=== PATIENT | female | born 1965 | race Caucasian/White ===

== ENCOUNTER 2017-12-28 12:51 | Outpatient (RCR) | payer OTHER ==
[2017-10-26] MEDS: diphenhydrAMINE 25 MG CAP PO PRN (13:12)
[2017-10-26 13:19] VITALS: BP 129/81
[2017-12-06 09:11] VITALS: BP 154/111
[2017-12-06 13:54] VITALS: BP 126/72
[2017-12-06] MEDS: LIDOCAINE/SOD BICARB 8.4% SYR ID PRN (14:21)
[2017-12-06] MEDS: diphenhydrAMINE 25 MG CAP PO PRN (14:21)
[2017-12-06] MEDS: NS(*) 0.9% 100 ML BAG 100 ML IVPB PRN (14:22)
[~2017-12-28 12:51] MED LIST: ACETAMINOPHEN 325 MG TAB PO PRN; ACIPHX20PT GT; ACIPHX20PT PO; ACTEMRA; ADV250/50 INH; ALTEPLASE RECOMB 2 MG VIAL IVP PRN; ASPI81TA15 PO; BEN100 JT; BIOT1CAP; CALC625T57 PO; CETI-176 PO; CRAN200C5 PO; CYCL10TA29 GT; DEXTROSE 5%(*) 100 ML BAG 100 ML IVPB PRN; FENO135C3 PO; GUALA600 PEG; HEPARIN FLSH (PORT) 500 UN/5ML IVP PRN; HYDR-2966 PO; HYDR-3378 PO; HYDR200T77 PO; IMMU GLOB(IGG) 10GR/100ML VIAL 40 GR in EMPTY EVACUATED CONT 0 ML IV ONE; LACT1CAP4 PO; LOSA100T67 PO; MECL-81 PO; MON10 GT; MONT10TA PO; NS(*) 0.9% 500 ML BAG 500 ML IV PRN; ONDA4TAB PO; PAROX40PT GT; POLY17PO GT; POTA99TA2 PO; PROAIRPT IH; RANI-375 PO; RANI300C8 PO; TOP100 GT; TOPI-28 PO; WATER STERILE 10 ML VIAL IVP PRN; [UNRECOGNIZED DRUG - REMARK]; blood pressure med PO
[2017-12-28 13:15] VITALS: BP 127/90
[2017-12-28] MEDS: NS(*) 0.9% 100 ML BAG 100 ML IVPB PRN (13:20)
[2017-12-28 13:33] LABS: PLATELET COUNT, AUTOMATED 415 K/uL (150-450)
[2017-12-28] MEDS: diphenhydrAMINE 25 MG CAP PO PRN (13:44)
[2017-12-28] MEDS: LIDOCAINE/SOD BICARB 8.4% SYR ID PRN (13:45)
[2017-12-28] MEDS ORDERED: IMMU GLOB(IGG) 10GR/100ML VIAL 40 GR in EMPTY EVACUATED CONT 0 ML IV ONE (13:45)
[2017-12-28 16:02] VITALS: BP 145/98
== END 2018-01-23 ==
LOC: SPU 12:51
PROVIDERS: ATTEND Family Medicine
DX: D83.8 Other common variable immunodeficiencies (principal); J32.4 Chronic pansinusitis; R05 Cough
CPT/HCPCS: 82784; 85025; 96365; 96366; J1459; J7050; Q0163; 82040; 82247; 82310; 82374; 82435; 82565; 82947; 84075; 84132; 84155; 84295; 84450; 84460; 84520

== ENCOUNTER 2018-04-01 12:54 | Outpatient (RCR) | payer OTHER ==
[2018-01-25 13:30] VITALS: BP 140/92
[2018-01-25] MEDS: LIDOCAINE/SOD BICARB 8.4% SYR ID PRN (13:52)
[2018-01-25] MEDS: diphenhydrAMINE 25 MG CAP PO PRN (13:52)
[2018-03-01 13:09] VITALS: BP 135/104
[2018-03-01] MEDS: LIDOCAINE/SOD BICARB 8.4% SYR ID PRN (13:26)
[2018-03-01] MEDS: diphenhydrAMINE 25 MG CAP PO PRN (13:26)
[2018-03-01] MEDS: NS(*) 0.9% 100 ML BAG 100 ML IVPB PRN (13:27)
[~2018-04-01 12:54] MED LIST changes: -ALTEPLASE RECOMB 2 MG VIAL IVP PRN; -HEPARIN FLSH (PORT) 500 UN/5ML IVP PRN; -NS(*) 0.9% 500 ML BAG 500 ML IV PRN; -WATER STERILE 10 ML VIAL IVP PRN
[2018-04-01] MEDS: diphenhydrAMINE 25 MG CAP PO PRN (13:04)
[2018-04-01] MEDS: NS(*) 0.9% 100 ML BAG 100 ML IVPB PRN (13:04)
[2018-04-01] MEDS: LIDOCAINE/SOD BICARB 8.4% SYR ID PRN (13:04)
[2018-04-01] MEDS ORDERED: IMMU GLOB(IGG) 10GR/100ML VIAL 40 GR in EMPTY EVACUATED CONT 0 ML IV ONE (14:00)
[2018-04-01 15:52] VITALS: BP 142/96
== END 2018-04-24 ==
LOC: SPU 12:54
PROVIDERS: ATTEND Family Medicine
DX: D83.8 Other common variable immunodeficiencies (principal); J01.40 Acute pansinusitis, unspecified; J45.40 Moderate persistent asthma, uncomplicated; J30.9 Allergic rhinitis, unspecified
CPT/HCPCS: 96365; 96366; J1459; J7050; Q0163

== ENCOUNTER 2018-06-28 12:46 | Outpatient (RCR) | payer OTHER ==
[2018-04-26 12:53] VITALS: BP 140/100
[2018-04-26] MEDS: diphenhydrAMINE 25 MG CAP PO PRN (13:06)
[2018-04-26] MEDS: NS(*) 0.9% 100 ML BAG 100 ML IVPB PRN (13:07)
[~2018-06-28 12:46] MED LIST changes: +LIDOCAINE/SOD BICARB 8.4% SYR ID PRN
[2018-06-28 13:01] VITALS: BP 140/97
[2018-06-28] MEDS: diphenhydrAMINE 25 MG CAP PO PRN (13:14)
[2018-06-28] MEDS: NS(*) 0.9% 100 ML BAG 100 ML IVPB PRN (13:24)
[2018-06-28] MEDS ORDERED: IMMU GLOB(IGG) 20GR/200ML VIAL 40 GR in EMPTY EVACUATED CONT 0 ML IV ONE (13:40)
[2018-06-28] MEDS ORDERED: IMMU GLOB(IGG) 10GR/100ML VIAL 40 GR in EMPTY EVACUATED CONT 0 ML IV ONE (13:40)
[2018-06-28 15:49] VITALS: BP 136/90
== END 2018-07-24 ==
LOC: SPU 12:46
PROVIDERS: ATTEND Family Medicine
DX: D83.8 Other common variable immunodeficiencies (principal); J01.40 Acute pansinusitis, unspecified; J45.40 Moderate persistent asthma, uncomplicated; J30.9 Allergic rhinitis, unspecified
CPT/HCPCS: 96365; 96366; J1459; J7050; Q0163

== ENCOUNTER 2018-09-05 12:56 | Outpatient (RCR) | payer OTHER ==
[2018-08-02 13:13] VITALS: BP 132/89
[2018-08-02] MEDS: diphenhydrAMINE 25 MG CAP PO PRN (13:30)
[2018-08-02] MEDS: LIDOCAINE/SOD BICARB 8.4% SYR ID PRN (13:31)
[2018-08-02] MEDS: NS(*) 0.9% 100 ML BAG 100 ML IVPB PRN (13:32)
[2018-08-02 16:17] VITALS: BP 146/90
[~2018-09-05 12:56] MED LIST changes: -IMMU GLOB(IGG) 10GR/100ML VIAL 40 GR in EMPTY EVACUATED CONT 0 ML IV ONE; +IMMU GLOB(IGG) 20GR/200ML VIAL 40 GR in EMPTY EVACUATED CONT 0 ML IVPB ONE; -LIDOCAINE/SOD BICARB 8.4% SYR ID PRN; -LOSA100T67 PO; +LOSA100T69 PO
[2018-09-05 13:06] VITALS: BP 157/88
[2018-09-05] MEDS: diphenhydrAMINE 25 MG CAP PO PRN (13:16)
[2018-09-05] MEDS: LIDOCAINE/SOD BICARB 8.4% SYR ID PRN ×2 (13:17→14:00)
[2018-09-05] MEDS: NS(*) 0.9% 100 ML BAG 100 ML IVPB PRN ×2 (13:18→14:01)
[2018-09-05] MEDS ORDERED: IMMU GLOB(IGG) 20GR/200ML VIAL 40 GR in EMPTY EVACUATED CONT 0 ML IVPB ONE (14:00)
[2018-09-05 16:37] VITALS: BP 123/80
== END 2018-10-23 11:21 | disposition home or self-care (01) ==
LOC: SPU 12:56
PROVIDERS: ATTEND Family Medicine
DX: D83.8 Other common variable immunodeficiencies (principal); J01.40 Acute pansinusitis, unspecified; J45.40 Moderate persistent asthma, uncomplicated; J30.9 Allergic rhinitis, unspecified
CPT/HCPCS: 96365; 96366; J1459; J7050; Q0163